=== PATIENT | female | born 1985 | race Caucasian/White ===

== ENCOUNTER 2020-06-15 15:25 | Emergency (ER) | payer OTHER ==
[2020-06-15 16:01] LABS: BASOPHILS # (AUTO) 0.1 10^3/uL (0.0-0.1); BASOPHILS % (AUTO) 0.7 %; EOSINOPHILS # (AUTO) 0.1 10^3/uL (0.0-0.7); EOSINOPHILS % (AUTO) 1.6 %; HGB - HEMOGLOBIN 12.5 g/dL (12.0-16.0); LYMPHOCYTES # (AUTO) 2.2 10^3/uL (1.5-3.5); LYMPHOCYTES % (AUTO) 31.1 %; MEAN CORPUSCULAR HEMOGLOBIN 27.8 pg (27.0-31.0); MEAN CORPUSCULAR HGB CONC 31.7 g/dL (32.0-36.0); MEAN CORPUSCULAR VOLUME 87.8 fL (81.0-99.0); MEAN PLATELET VOLUME 10.1 fL (7.9-10.8); MONOCYTES # (AUTO) 0.7 10^3/uL (0.0-1.0); MONOCYTES % (AUTO) 9.8 %; NEUTROPHILS # (AUTO) 3.9 10^3/uL (1.5-6.6); NEUTROPHILS % (AUTO) 56.7 %; PLT - PLATELET COUNT 267 10^3/uL (130-450); RED BLOOD COUNT 4.49 10^6/uL (4.20-5.40); RED CELL DISTRIBUTION WIDTH 12.9 % (12.0-15.0); WHITE BLOOD COUNT 6.9 x10^3/uL (4.8-10.8)
--- NOTE | 2020-06-15 16:15 | XRAY Report ---
PROCEDURE: Chest 1 View X-Ray INDICATIONS: Chest Pain TECHNIQUE: One view of the chest was acquired. COMPARISON: None FINDINGS: Surgical changes and devices: None. Lungs and pleura: No pleural effusions or pneumothorax. Lungs are clear. Mediastinum: Mediastinal contours appear normal. Heart size is normal. Bones and chest wall: No suspicious bony lesions. Overlying soft tissues appear unremarkable. IMPRESSION: Normal portable chest. Reviewed by: Lb Cai MD on 06/15/2020 3:14 PM [facility] Approved by: Lb Cai MD on 06/15/2020 3:14 PM [facility] Station ID: [id number]
[2020-06-15 16:19] LABS: ALBUMIN 4.6 g/dL (3.2-5.5); ALBUMIN/GLOBULIN RATIO 1.6 (1.0-2.2); BILIRUBIN,TOTAL 0.7 mg/dL (0.2-1.0); CALCIUM 9.3 mg/dL (8.5-10.3); CREATININE 0.7 mg/dL (0.4-1.0); TOTAL PROTEIN 7.4 g/dL (6.7-8.2)
--- NOTE | 2020-06-15 16:41 | ED Physician Documentation ---
History of Present Illness - Stated complaint Stated Complaint: CHEST PRESSURE,JAW/EAR PX - Chief complaint Chief Complaint: Cardiac - Additonal information Additional information: 34-year-old female presents the emergency department for 2 concerns: 1. She reports chest pressure that began last night. She reports that it feels like she has a heavy sports bra on. She denies dyspnea or pleuritic chest pain. No syncope. She does report a history of anxiety for which she takes propanolol. She has had similar in the past with anxiety. She is a non-smoker. She works out daily. She does not have a family history of coronary artery disease or sudden onset cardiac in her family. No recent travel. No unilateral leg swelling, no immobilization. Not on any hormone, no history of blood clots or cancer. 2. She reports a sharp stabbing burning sensation just behind her left ear that radiates down the neck. She reports that it feels like a nerve is on fire. She has no pain in the jaw pain in the arm. She does use Q-tips but has no ear drainage. No tinnitus. She denies headache, diplopia, vision changes, no gait changes arm or leg weakness. Review of Systems Constitutional: denies: Fever, Chills Eyes: reports: Reviewed and negative Ears: reports: Ear pain Nose: reports: Reviewed and negative Throat: reports: Reviewed and negative Cardiac: reports: Chest pain / pressure, Palpitations. 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 : None HEENT: None Psych: Depression, Anxiety Musculoskeletal: Chronic back pain Derm: None - Past Surgical History Past Surgical History: No - Present Medications Home Medications: Ambulatory Orders Medication Instructions Recorded Confirmed Propranolol [Inderal] 10 mg PO DAILY PRN 06/15/20 06/15/20 - Allergies Allergies/Adverse Reactions: Allergies Allergy/AdvReac Type Severity Reaction Status Date / Time No Known Drug Allergies Allergy Verified 06/15/20 15:27 - Social History Does the pt smoke?: No Smoking Status: Never smoker Does the pt drink ETOH?: No Does the pt have substance abuse?: No - Immunizations Immunizations are current?: Yes - POLST Patient has POLST: No PD ED PE EXPANDED - General General: Alert, No acute distress, Well developed/nourished - HEENT HEENT: Atraumatic, PERRL, EOMI, Ears normal, Moist mucous membranes, Dentition normal (No pain at TMJ. No grinding wear on posterior molars.) - Eyes Eyes: PERRL - Neck Neck: Supple w/out meningeal sx. No: JVD present, Bruit present, Adenopathy, Thyroid enlarged / mass, No tenderness - Cardiac Cardiac: Regular Rate, Regular Rhythm, Radial strong equal, Pedal strong equal, Cap refill < 2 sec. No: Murmur Present - Respiratory Respiratory: Clear to ausultation charles. No: Distress, Labored - Abdomen Abdomen: Normal Bowel sounds. No: Tender to palpation - Derm Derm: Normal color, Warm and dry. No: Rash - Extremities Extremities: Normal. No: Deformity, Pedal edema bilateral, Right calf TTP/cord, Left calf TTP/cord - Neuro Neuro: Alert and Oriented X 3, CNII-XII intact, Cerebellar nl, Normal gait, Normal finger nose, Normal speech. No: Nystagmus - GCS Eye Opening: Spontaneous Motor: Obeys Commands Verbal: Oriented Total: 15 Results - Vitals Vitals: Vital Signs - 24 hr 06/15/20 06/15/20 15:27 16:13 Temperature 36.2 C L Heart Rate 61 60 Respiratory 18 12 Rate Blood Pressure 147/69 H 151/90 H O2 Saturation 97 99 Oxygen O2 Source Room air - EKG (time done) 1528 Rate: Rate (enter#) (58) Rhythm: NSR [place]: Normal Intervals: Normal [place] QRS: Normal Ischemia: Normal ST segments Computer interpretation: Agree with computer - Labs Labs: Laboratory Tests 06/15/20 06/15/20 06/15/20 15:57 15:57 15:57 WBC 6.9 RBC 4.49 Hgb 12.5 Hct 39.4 MCV 87.8 MCH 27.8 MCHC 31.7 L RDW 12.9 Plt Count 267 MPV 10.1 Neut # (Auto) 3.9 Lymph # (Auto) 2.2 [place] # (Auto) 0.7 Eos # (Auto) 0.1 Baso # (Auto) 0.1 Absolute Nucleated RBC 0.00 Nucleated RBC % 0.0 Sodium 135 Potassium 4.0 Chloride 103 Carbon Dioxide 24 Anion Gap 8.0 BUN 9 Creatinine 0.7 Estimated GFR (MDRD) 97 Glucose 97 Calcium 9.3 Total Bilirubin 0.7 AST 24 ALT 17 Alkaline Phosphatase 42 Troponin I High Sens 2.5 Total Protein 7.4 Albumin 4.6 Globulin 2.8 Albumin/Globulin Ratio 1.6 Lipase 32 PD MEDICAL DECISION MAKING - ED course Complexity details: reviewed results, re-evaluated patient, considered differential, d/w patient ED course: This is a well-appearing 34-year-old female that presents the emergency department for left ear pain and chest pressure. The ear pain is described as a burning nerve pain. There is no rash. No findings consistent with acute otitis media or otitis externa. She does report a history of chickenpox as a child and I do consider that this burning ear pain may be an early sign of possible shingles. I have advised her to be very cautious and aware of any developing rash. She also reports a history of chest pressure over the last 24 hours. Her EKG is nonischemic. High-sensitivity troponin is negative. Chest x-ray without acute focal abnormalities. She stated to me that when she is in college she was diagnosed with a heart murmur and had an echocardiogram that was unremarkable. She does work out daily and is otherwise healthy. By Wells criteria and PERC score she is very low risk for PE. She does report a history of chest pressure with anxiety and she is somewhat anxious at bedside. At this time her heart score is 1. Advise close follow-up with primary care provider. Emergent return precautions discussed Departure - Departure Disposition: 01 Home, Self Care Clinical Impression: Chest pressure, Left ear pain Condition: Stable Record reviewed to determine appropriate education?: Yes Instructions: ED Chest Pain NonCardiac Follow-Up: Kenia Dexter PA-C [Primary Care Provider] - Comments: Lyly sawyer were seen in the emergency department today for chest pressure and left ear pain. Your EKG is unremarkable. All of the labs that we elizabeth including your blood chemistry, blood count and troponin were normal. Your chest x-ray is also unremarkable. As we discussed at the bedside the likelihood that you are having a heart attack is very low. It is also very unlikely that you have a blood clot in your lungs. Please discuss this ED visit with your primary care doctor. In follow-up she may want to consider a Holter monitor to further evaluate your palpitations. If at any point you have fainting episodes, suddenly severe chest pain or fevers please return immediately to the ER. As we also discussed there were no worrisome findings on exam of your mouth or ears. The burning pain often suggests a nerve problem. Sometimes in people who have had chickenpox this could be a sign that shingles or a rash may be developing. Please pay close attention to this area. If you develop a rash return immediately to the ER for reevaluation.
[2020-06-15 16:52] VITALS: BP 150/80
== END 2020-06-15 16:57 | disposition home or self-care (01) ==
LOC: ED 15:25
DX: R07.89 Other chest pain (principal); H92.02 Otalgia, left ear; F41.9 Anxiety disorder, unspecified
CPT/HCPCS: 36415; 80053; 83690; 84484; 85025; 93005; 99284

== ENCOUNTER 2021-10-16 09:17 | Emergency (ER) | payer OTHER ==
--- NOTE | 2021-10-16 12:58 | ED Physician Documentation ---
History of Present Illness - Stated complaint Stated Complaint: C+ R LEG PAIN/BRUISING - Chief complaint Chief Complaint: Ext Problem - History obtained from History obtained from: Patient - History of Present Illness Timing: Today - Additonal information Additional information: 36-year-old Lyly Gray as had COVID this past week and did really quite well with her symptoms. She is asymptomatic now and this morning she was shaving her legs and noticed an area where a blood vessel appeared engorged and was tender. She is here now with concerns about deep vein thrombosis.She denies any chest pain or shortness of breath associated with this. She denies any swelling to her leg or posterior calf pain. Review of Systems Constitutional: denies: Fever Respiratory: reports: Cough GI: denies: Vomiting, Diarrhea Musculoskeletal: reports: Extremity pain, Pain with weight bearing. 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 : None HEENT: None Psych: Depression, Anxiety Musculoskeletal: Chronic back pain Derm: None - Past Surgical History Past Surgical History: No - Present Medications Home Medications: Ambulatory Orders Medication Instructions Recorded Confirmed Cetirizine [ZyrTEC] 10 mg PO DAILY 10/16/21 10/16/21 Duloxetine HCl [Cymbalta] 60 mg PO DAILY 10/16/21 10/16/21 Pantoprazole [Protonix] 40 mg PO BID 10/16/21 10/16/21 - Allergies Allergies/Adverse Reactions: Allergies Allergy/AdvReac Type Severity Reaction Status Date / Time No Known Drug Allergies Allergy Verified 10/16/21 09:32 - Social History Does the pt smoke?: No Smoking Status: Never smoker Does the pt drink ETOH?: No Does the pt have substance abuse?: No - Immunizations Immunizations are current?: Yes - POLST Patient has POLST: No PD ED PE NORMAL - Vitals Vital signs reviewed: Yes (hypertensive mild ) - General General: Alert and oriented X 3, No acute distress, Well developed/nourished - HEENT HEENT: Atraumatic, PERRL, EOMI - Respiratory Respiratory: No respiratory distress - Derm Derm: Normal color, Warm and dry, No rash - Extremities Extremities: No deformity, Other (There is a ashanti to the medial aspect of the right calf that is palpable and tender. Superficial vein. No posterior calf or thigh tenderness. ) - Neuro Neuro: Alert and oriented X 3, rn pain management 2-12 intact, No motor deficit, No sensory deficit, Normal speech Eye Opening: Spontaneous Motor: Obeys Commands Verbal: Oriented GCS Score: 15 - Psych Psych: Normal mood, Normal affect Results - Vitals Vitals: Vital Signs - 24 hr 10/16/21 10/16/21 09:28 13:10 Temperature 36.6 C Heart Rate 69 68 Respiratory 16 16 Rate Blood Pressure 149/82 H 138/78 H O2 Saturation 98 99 Oxygen O2 Source Room air - Rads (name of study) duplex viens right Radiology: Prelim report reviewed (Impression: No deep venous thrombosis.), EMP read indepedently, See rad report PD MEDICAL DECISION MAKING - ED course Complexity details: reviewed results, re-evaluated patient, considered differential, d/w patient ED course: 36-year-old female with a distended leg vein does not have evidence of deep vein thrombosis. She is treated for superficial thrombophlebitis. Departure - Departure Disposition: 01 Home, Self Care Clinical Impression: Superficial thrombophlebitis Qualifiers: Superficial thrombophlebitis-Involved body area: lower extremity Laterality: right Qualified Code(s): I80.01 - Phlebitis and thrombophlebitis of superficial vessels of right lower extremity Condition: Stable Instructions: ED Phlebitis Superficial Follow-Up: Kenia Dexter PA-C [Primary Care Provider] - Discharge Date/Time: 10/16/21 13:11
[2021-10-16 13:11] VITALS: BP 138/78
--- NOTE | 2021-10-16 13:15 | Ultrasound Report ---
PROCEDURE: Duplex Ext Veins Right INDICATIONS: painful distended ashanti one week after COVID TECHNIQUE: Real-time imaging, as well as color and pulse Doppler interrogation, were performed of the lower extr emity deep veins from the inguinal ligament to the popliteal fossa. COMPARISON: None. FINDINGS: The deep veins are normally compressible, and free of intraluminal thrombus. Color and pu lse Doppler demonstrate normal phasic intraluminal flow. There is normal augmentation response to di stal compression maneuver. IMPRESSION: No deep venous thrombosis. Reviewed by: Johanna Munoz MD on 10/16/2021 1:13 PM PDT Approved by: Johanna Munoz MD on 10/16/2021 1:13 PM PDT Station ID: [id number]
== END 2021-10-16 13:11 | disposition home or self-care (01) ==
LOC: ED 09:17
DX: I80.01 Phlebitis and thrombophlebitis of superficial vessels of right lower extremity (principal)
CPT/HCPCS: 99282; 99283